=== PATIENT | male | born 1975 | race Caucasian/White ===

== ENCOUNTER 2017-10-17 18:15 | Emergency (ER) | payer BC, OTHER ==
--- NOTE | 2017-10-17 18:46 | UC ---
Knee Pain HPI - HPI Summary HPI Summary: Late last week(10/10 and 10/11), was doing familia work on his knees, wearing knee pads. Onset of swelling in the knee on Thursday 10/12, the day following the work. This continued, with increased pain, and after work on 10/14, he went to [facility] for assessment. Dx with knee strain, had xrays with mild OA changes, given nsaid cream to apply topically. Advised to wear a brace, and he started wearing his daughter's knee immobilizer. --at [facility], provider advised that this was not WCB, and submitted to insurance. Has done light duty this week, but noted increased foreleg bruising today. Has continued pain and swelling in the knee. He has had no instability in the knee, no previous injury. - History of Current Complaint Stated Complaint: RT KNEE COMPLAINT Time Seen by Provider: 10/17/17 18:28 Hx Obtained From: Patient Onset/Duration: Gradual Onset, Lasting Days - 5 Severity Initially: Moderate Severity Currently: Moderate Pain Intensity: 5 Pain Scale Used: 0-10 Numeric Character: Throbbing Aggravating Factor(s): Movement, Weight Bearing, Prolonged Standing Alleviating Factor(s): Rest Associated Signs And Symptoms: Positive: Swelling, Bruising Able to Bear Weight: Yes - Risk Factors Septic Arthritis Risk Factor: Negative Gout Risk Factor: Age ^ 41 - Allergies/Home Medications Allergies/Adverse Reactions: Allergies Allergy/AdvReac Type Severity Reaction Status Date / Time No Known Allergies Allergy Verified 10/17/17 18:41 Home Medications: Home Medications Ibuprofen TAB* [Advil TAB*] 200 mg PO Q6H PRN 10/17/17 [History Confirmed ] PMH/Surg Hx/FS Hx/Imm Hx Previously Healthy: Yes - Family History Known Family History: Positive: Cardiac Disease - father of heart disease. - Social History Occupation: Employed Full-time - construction work, does familia primarily Lives: With Family Review of Systems Constitutional: Negative Skin: Negative Eyes: Negative ENT: Negative Respiratory: Negative Cardiovascular: Negative Gastrointestinal: Negative Genitourinary: Negative Motor: Negative Neurovascular: Negative Musculoskeletal: Arthralgia, Edema, Other: - bruising in the foreleg, no calf tenderness. Neurological: Negative Psychological: Negative Is Patient Immunocompromised?: Yes All Other Systems Reviewed And Are Negative: Yes Physical Exam Triage Information Reviewed: Yes Appearance: Well-Appearing, Pain Distress - mild to moderate Respiratory: Positive: Lungs clear, Normal breath sounds Cardiovascular: Positive: RRR, No Murmur Musculoskeletal Exam: Other - right knee with prepatellar swelling, mild lateral joint line tenderness. Limited flexion to about 60 degrees. Musculoskeletal: Positive: ROM Limited @ - right knee, Other: - has extensive ecchymosis over the medial knee and pre-tibial area, with linear ecchymotic area likely caused by the brace (most likely). NO calf tenderness, neg Lam's Neurological: Positive: Alert, Muscle Tone Normal Psychological Exam: Other Skin Exam: Other - ecchymoses as above Knee Pain Course/Dx - Course Course Of Treatment: STOP use of immobilizer. Begin ibuprofen 600 tid (no contraindications). Ice the knee, maintain modified activity. - Differential Dx/Diagnosis Differential Diagnosis/HQI/PQRI: Bursitis, Cellulitis, Contusion, Sprain, Strain Provider Diagnoses: prepatellar bursitis. ecchymosis secondary to leg brace. Discharge - Sign-Out/Discharge Documenting (check all that apply): Discharge/Admit/Transfer - Discharge Plan Condition: Stable Disposition: HOME Patient Education Materials: Knee Bursitis (ED), Ecchymosis (ED) Referrals: Non Staff,Doctor [Medical Doctor] - Additional Instructions: The bursitis should improve with use of ice and oral ibuprofen 600mg three times daily with food. STOP if you begin to develop stomach upset. The bruising is likely from the chafing of the immobilizer; please stop use of that. If you develop increased pain in the front of the leg, you must have the leg reassessed (there is a small risk of compartment syndrome, which is high pressure in the campartments of the leg...this causes extreme pain with movement of the leg. - Billing Disposition and Condition Condition: STABLE Disposition: Home
== END 2017-10-17 19:41 | disposition home or self-care (01) ==
LOC: UCCORT 18:15
DX: S80.00XA Contusion of unspecified knee, initial encounter (principal); X58.XXXA Exposure to other specified factors, initial encounter; Y93.89 Activity, other specified; Y92.9 Unspecified place or not applicable; M70.40 Prepatellar bursitis, unspecified knee; Y93.H3 Activity, building and construction
CPT/HCPCS: 99201; G0463

== ENCOUNTER 2019-01-27 18:23 | Emergency (ER) | payer BC ==
--- NOTE | 2019-01-27 18:40 | UC ---
Skin Complaint HPI - HPI Summary HPI Summary: 43 yo male presents with wooden sliver to right hand. He tells me that he was moving wood at home around 1530 today and a piece of wood punctured his skin and embedded within. He removed 2-3cm of the wooden sliver at home, but it broke off and a part remains within the skin. Unsure date of last tetanus - History of Current Complaint Time Seen by Provider: 01/27/19 18:40 Stated Complaint: SLIVER RIGHT HAND Hx Obtained From: Patient Onset/Duration: Sudden Onset Onset Severity: Mild Current Severity: Mild Pain Intensity: 3 Pain Scale Used: 0-10 Numeric - Allergy/Home Medications Allergies/Adverse Reactions: Allergies Allergy/AdvReac Type Severity Reaction Status Date / Time No Known Allergies Allergy Verified 01/27/19 18:42 PMH/Surg Hx/FS Hx/Imm Hx - Additional Past Medical History Additional PMH: None - Surgical History Surgical History: None - Family History Known Family History: Positive: Cardiac Disease - father of heart disease. - Social History Occupation: Employed Full-time Lives: With Family Alcohol Use: Rare Substance Use Type: None Smoking Status (MU): Current Some Day Smoker Type: Cigars Amount Used/How Often: daily Length of Time of Smoking/Using Tobacco: 10-15 yrs Have You Smoked in the Last Year: Yes Review of Systems All Other Systems Reviewed And Are Negative: No Constitutional: Positive: Negative Skin: Positive: Other - Wood sliver in hand Respiratory: Positive: Negative Cardiovascular: Positive: Negative Neurological: Positive: Negative Psychological: Positive: Negative Physical Exam - Summary Physical Exam Summary: GENERAL: NAD. WDWN. No pain distress. SKIN: RIGHT HAND: Overlying the 5th dorsal MCP there is a 2.0cm wooden sliver embedded within the skin. Slightly TTP. CHEST: No accessory muscle use. Breathing comfortably and in no distress. CV: Pulses intact radial and ulnar. Cap refill <2seconds MSK: RIGHT 5th digit: FROM at 5th MCP NEURO: Alert. Sensations intact hand and all fingers. PSYCH: Age appropriate behavior. Triage Information Reviewed: Yes Vital Signs: Vital Signs: Temp Pulse Resp BP Pulse Ox 98 F 77 17 144/84 97 01/27/19 18:41 01/27/19 18:41 01/27/19 18:41 01/27/19 18:41 01/27/19 18:41 Vital Signs Reviewed: Yes Procedures - Procedure Summary Procedure Summary: Wood splinter in 5th MCP. The procedure was explained to the pt and all questions were answered. A time out was performed, witnessed, and signed. The area was cleansed with an idoine swab. 1mL of 2% lidocaine without epi was administered and good anesthetization was achieved. With pressure applied to the radial aspect of the splinter, it was able to be exposed through the original ulnar puncture site. Grasped with hemostats and removed intact. Homeostasis achieved. The wound was bandaged with a band-aid. Pt tolerated procedure well. Course/Dx - Course Course Of Treatment: FB removed intact. See above procedure note. tdap updated today Given proximity to joint and duration FB was embedded - will start pt on anbx for prophylactic infection. - Diagnoses Provider Diagnosis: Splinter of hand Discharge ED - Sign-Out/Discharge Documenting (check all that apply): Patient Departure All imaging exams completed and their final reports reviewed: No Studies - Discharge Plan Condition: Stable Disposition: HOME Prescriptions: Amoxicillin/Clavulanate TAB* [Augmentin TAB 875*] 875 mg PO BID #14 tab Patient Education Materials: Soft Tissue Foreign Body (ED) Referrals: No Primary Care Phys,NOPCP [Primary Care Provider] - Additional Instructions: If you develop a fever, shortness of breath, chest pain, new or worsening symptoms - please call your PCP or go to the ED immediately. Your blood pressure was high at todays visit. Please see your primary provider within 4 weeks for recheck and re-evaluation. 1) Take your antibiotic as prescribed 2) Apply a band-aid to the area until well healed (likely 2-3 days) - Billing Disposition and Condition Condition: STABLE Disposition: Home
[2019-01-27] MEDS ORDERED: Tetan/Diph/Pertus SYR(Tdap)* 0.5 ML SYR(BOOSTRIX) use SYR contains LATEX IM ONE (18:44)
[2019-01-27] MEDS ORDERED: Lidocaine 2% PF * 5 ML VIAL INJ ONE (18:44)
[2019-01-27 18:45] VITALS: BP 144/84
== END 2019-01-27 19:20 | disposition home or self-care (01) ==
LOC: UCCORT 18:23
DX: S60.551A Superficial foreign body of right hand, initial encounter (principal); Z23 Encounter for immunization; Z72.0 Tobacco use; W45.8XXA Other foreign body or object entering through skin, initial encounter; Y92.009 Unspecified place in unspecified non-institutional (private) residence as the place of occurrence of the external cause
CPT/HCPCS: 10120; 90471; 90715; 99212; G0463